=== PATIENT | male | born 1990 | race Caucasian/White ===

== ENCOUNTER 2018-06-01 11:50 | Emergency (ER) | payer OTHER ==
[2018-06-01] MEDS: predniSONE 20 MG TAB PO (12:24)
== END 2018-06-01 12:34 | disposition home or self-care (01) ==
LOC: M ED 11:50
DX: M54.12 Radiculopathy, cervical region (principal); M62.838 Other muscle spasm; Z79.899 Other long term (current) drug therapy
CPT/HCPCS: 99282

== ENCOUNTER 2020-12-06 23:43 | Emergency (ER) | payer OTHER ==
[~2020-12-06] VITALS: Ht 182.9 cm; Wt 95.4 kg
[~2020-12-06 23:43] MED LIST: METH-1164 PO; NAPR-885 PO; PRED20TA PO; VALI5TAB PO
--- OUTSIDE RECORDS SUMMARY | 2020-12-06 23:48 | CCD ---
Author Author [facility] Organization [facility] Address Unknown Phone Unavailable Support Name Relationship Address Phone [facility] Next Of Kin [address] [place] [address] Unavailable BEN MARY Next Of Kin [address] [place] [address] Re-disclosure Warning The records that you are about to access may contain information from federally-assisted alcohol or drug abuse programs. If such information is present, then the following federally mandated warning applies: This information has been disclosed to you from records protected by federal confidentiality rules (42 CFR part 2). The federal rules prohibit you from making any further disclosure of this information unless further disclosure is expressly permitted by the written consent of the person to whom it pertains or as otherwise permitted by 42 CFR part 2. A general authorization for the release of medical or other information is NOT sufficient for this purpose. The Federal rules restrict any use of the information to criminally investigate or prosecute any alcohol or drug abuse patient.The records that you are about to access may contain highly sensitive health information, the redisclosure of which is protected by Article 27-F of the [facility] Public Health law. If you continue you may have access to information: Regarding HIV / AIDS; Provided by facilities licensed or operated by the [facility] Office of Mental Health; or Provided by the [facility] Office for People With Developmental Disabilities. If such information is present, then the following [facility] mandated warning applies: This information has been disclosed to you from confidential records which are protected by state law. State law prohibits you from making any further disclosure of this information without the specific written consent of the person to whom it pertains, or as otherwise permitted by law. Any unauthorized further disclosure in violation of state law may result in a fine or intermediate sentence or both. A general authorization for the release of medical or other information is NOT sufficient authorization for further disc losure. Insurance Providers Payer name Policy type / Coverage type Policy ID Covered alliance party ID Covered alliance party's relationship to munson Policy Munson Plan Information [facility] [employer] [id number]
[2020-12-07] MEDS ORDERED: LIDOCAINE 4% CREAM 5GM (LMX4) TOP ONE (00:15)
--- OUTSIDE RECORDS SUMMARY | 2020-12-07 00:21 | CCD ---
Author Author [facility] Organization [facility] Address Unknown Phone Unavailable Support Name Relationship Address Phone [place] [address] [facility] Next Of Kin [address] [place] [address] Unavailable BEN MARY Next Of Kin [address] [place] [id number] Re-disclosure Warning The records that you are [...] is protected by Article 27-F of the [facility] Public Health law. If you continue you may have access to information: Regarding HIV / AIDS; Provided by facilities licensed or operated by the [facility] Office of Mental Health; or Provided by the [facility] Office for People With Developmental Disabilities. If such information is present, then the following [facility] mandated warning applies: This information has been [...] law may result in a fine or usp sentence or both. A general authorization for the release of medical or other information is NOT sufficient authorization for further disc losure. Insurance Providers Payer name Policy type / Coverage type Policy ID Covered alliance party ID Covered alliance party's relationship to munson Policy [employer] Plan Information [facility] [employer]IVE [employer] [id number]
--- NOTE | 2020-12-07 00:45 | REPVR ---
PROCEDURE INFORMATION: Exam: XR Right Elbow Exam date and time: 12/07/2020 12:32 AM Age: 29 years old Clinical indication: Pain; Elbow; Right; Additional info: Hit elbow while skiing 5 days ago TECHNIQUE: Imaging protocol: XR Right elbow. Views: 3 or more views. COMPARISON: No relevant prior studies available. FINDINGS: Bones/joints: Normal. No joint effusion. No fracture. Soft tissues: Normal. IMPRESSION: Negative right elbow. Electronically signed by: Clinton Melgar On 12/07/2020 00:45:34 AM
[2020-12-07] MEDS ORDERED: NAPR-837 PO (01:26)
[2020-12-07] MEDS ORDERED: ANEC4CRE3 TOP (01:26)
[2020-12-07 01:28] VITALS: BP 161/81
== END 2020-12-07 01:36 | disposition home or self-care (01) ==
LOC: M ED 23:43
DX: S59.901A Unspecified injury of right elbow, initial encounter (principal); V00.321A Fall from snow-skis, initial encounter; Y92.828 Other wilderness area as the place of occurrence of the external cause; Y93.23 Activity, snow (alpine) (downhill) skiing, snowboarding, sledding, tobogganing and snow tubing; Y99.9 Unspecified external cause status